=== PATIENT | female | born 1965 | race Caucasian/White ===

== ENCOUNTER 2022-01-24 13:39 | Outpatient (CLI) | payer OTHER, SELFPAY ==
[2022-01-24 11:26] LABS: Albumin* 4.2 g/dL (3.3-5.0); Chloride* 107 mmol/L (96-114)
[2022-01-24 11:27] LABS: Potassium* 4.4 mmol/L (3.6-5.1); Sodium* 141 mmol/L (135-149)
[2022-01-24 11:29] LABS: Aspartate Amino Transferase* 24 U/L (12-35); Bilirubin Total* 0.7 mg/dL (0.1-1.5); Blood Urea Nitrogen* 23 mg/dL (7-30); Carbon Dioxide* 29 mmol/L (20-32); Cholesterol* 238 mg/dL (90-199); Estimated Glomerular Filt Rate 67 ml/min; Glucose* 91 mg/dL (60-115); Total Protein* 6.3 g/dL (6.0-8.3)
[2022-01-24 11:30] LABS: Alanine Aminotransferase* 18 U/L (4-35); Alkaline Phosphatase* 72 U/L (40-150); Calcium* 9.6 mg/dL (8.4-10.6); HDL Cholesterol* 86 mg/dL (>=50); LDL Cholesterol Calculated 137 mg/dL (<100); Triglycerides* 74 mg/dL (40-149)
[2022-01-24 13:13] LABS: Free T4 Free Thyroxine* 0.98 ng/dL (0.70-1.85)
== END 2022-01-24 13:40 | disposition home or self-care (01) ==
PROVIDERS: PCP Family Medicine; Visit Provider Family Medicine
DX: E03.9 Hypothyroidism, unspecified (principal); E78.5 Hyperlipidemia, unspecified; F41.9 Anxiety disorder, unspecified
CPT/HCPCS: 80053; 80061; 84439; 84443

== ENCOUNTER 2022-04-11 08:45 | Outpatient (CLI) | payer OTHER, SELFPAY | END 2022-04-11 08:46 | disposition home or self-care (01) | LOC: NFLDREF 04-14 11:09 | PROVIDERS: PCP Family Medicine; Referring Provider Family Medicine; Visit Provider Family Medicine | DX: E03.9 Hypothyroidism, unspecified (principal) | CPT/HCPCS: 84443 ==

== ENCOUNTER 2022-05-18 08:01 | Day surgery (SDC) | payer OTHER, SELFPAY ==
[2022-05-18 08:21] VITALS: BMI 19.9
[2022-05-18 08:24] VITALS: BP 114/90; PULSE 66; RESP 20; TEMP 36.5; O2SAT 99
[2022-05-18] MEDS: LACTATED RINGERS 1000 ML 1,000 ML 100 ML IV (08:30)
--- NOTE | 2022-05-18 08:33 | SUR.PREOP ---
home covid test, negative
[2022-05-18] MEDS: SODIUM CHLORIDE 0.9 % (FLUSH) 10 ML SYRINGE IVF (08:34)
[2022-05-18] MEDS: CEFAZOLIN 1 GM inj IVP (09:08)
[2022-05-18] MEDS: BUPIVACAINE 0.5% 30 ML INJECTION (09:26)
[2022-05-18] MEDS: LIDOCAINE 1% 5 ml (pf) 5 ML VIAL 15 ML INJECTION (09:26)
[2022-05-18 09:45] VITALS: BP 95/60; PULSE 56; RESP 16; TEMP 36.4; O2SAT 98
--- NOTE | 2022-05-18 09:45 | P.GSOP_ITS ---
Operative Note Date of procedure: 05/18/22 Pre-op diagnosis: Lipoma, left upper arm Post-op diagnosis: Same Type of Procedure: Excision of left upper arm lipoma Indications: Patient is a 57-year-old female who presented to clinic with a symptomatic lipoma. Different treatment options were reviewed including observation versus surgical excision. Risks and benefits of operative intervention were discussed at length with the patient. Risks included but was not limited to: Bleeding, infection, risk of damage to surrounding structures, possible need for addition al procedures, risk of recurrence and postoperative complications such as pneumonia, pulmonary emboli or [place]. All questions and concerns were addressed with the patient agreeing to proceed. Procedure Description: After discussing the risks and benefits of the procedure, the patient signed informed consent.? The operative site was marked and the patient was brought to the operating room and placed on the operating table in supine position.? Care was taken to pad the patient's pressure points.?? The patient was then given sedation by anesthesia.?? The operative site was then prepped and draped in the usual sterile fashion.? A time-out was then performed. Local anesthetic was used to infiltrate the surgical field. A vertical incision was made directly over the subcutaneous mass. Dissection was carried down with cautery to a well encapsulated lipoma. The lipoma was adherent to the underlying muscle fascia. Cautery and sharp dissection was used to circumferentially dissect out the mass, which measured 3 x 2 x 2 cm in size. Once removed the mass was sent to pathology. Hemostasis was assured with electrocautery. The incision measured 2 cm and was closed in layers of interrupted 3 0 Vicryl and running 4-0 Monocryl stitch. Dermabond and sterile dressings were applied. ? The patient was then woken and transported to the recovery area in stable condition. ? The patient tolerated the procedure well. Findings: Lipoma of the left upper arm Anesthesia: MAC Surgeon: Meaghan Becker MD Estimated blood loss (mL): 2 Additional Specimen Information: Left upper arm lipoma Condition: stable Disposition: same day
--- NOTE | 2022-05-18 09:45 | W.ANESCHARGE ---
Anesthesia Charges Start Date/Time Anesthesia Start Date: 05/18/22 Anesthesia Start Time: 09:03 Stop Date/Time Anesthesia Stop Date: 05/18/22 Anesthesia Stop Time: 09:42
[2022-05-18 09:56] VITALS: BP 105/58; PULSE 47; RESP 16; O2SAT 98
[2022-05-18 10:10] VITALS: BP 104/68; PULSE 47; RESP 16; TEMP 36.5; O2SAT 99
[2022-05-18 10:40] VITALS: BP 108/66; PULSE 55; RESP 20; O2SAT 99
--- NOTE | 2022-05-18 10:51 | W.ANESCHARGE ---
Anesthesia Charges Start Date/Time Anesthesia Start Date: 05/18/22 Anesthesia Start Time: 09:03 Stop Date/Time Anesthesia Stop Date: 05/18/22 Anesthesia Stop Time: 09:42
== END 2022-05-18 11:00 | disposition home or self-care (01) ==
PROVIDERS: PCP Family Medicine; Visit Provider Surgery
PROC: (CPT 24071; principal; 2022-05-18 09:15)
DX: D17.22 Benign lipomatous neoplasm of skin and subcutaneous tissue of left arm (principal)
CPT/HCPCS: 24071; 00400; 01710; J0690; J2250; J2704; J3010; J3490; J7120

== ENCOUNTER 2023-05-23 10:04 | Outpatient (CLI) | payer OTHER, SELFPAY ==
--- OUTSIDE RECORDS SUMMARY | 2023-05-23 10:07 | XMS_ITS | Clinical Summary ---
Author Name Unknown Organization [facility] Address [address] [place] [address] Care Team Providers Care Auto Air Conditioning Mechanic Name Role Phone Clinic, [facility] Primary Care Provider Allergies Active Allergy Reactions Criticality Noted Date Comments Ampicillin 07/30/2007 Social History Tobacco Use Types Packs/Day Years Used Date Smoking Tobacco: Never Assessed Adolescent Education Answer Date Record ed Getting School Help Needed Not on file 11/05 Sex and Gender Information Value Date Recorded Sex Assigned at Not on file Gender Identity Not on file Sexual Orientation Not on file Last Filed Vital Signs Vital Sign Reading Time Taken Comments Blood Pressure 118/72 01/18/2021 10:44 PM PAPER TESTING SUPERVISOR Pulse 87 01/18/2021 10:44 PM PAPER TESTING SUPERVISOR Temperature 36.6 ??C (97.9 ??F) 01/18/2021 7:54 PM CS T Respiratory Rate 16 01/18/2021 10:44 PM PAPER TESTING SUPERVISOR Oxygen Saturation 98% 01/18/2021 10:44 PM PAPER TESTING SUPERVISOR Inhaled Oxygen Concentration - - Weight 53.5 kg (118 lb) 01/18/2021 7:54 PM PAPER TESTING SUPERVISOR Height 165.1 cm (5' 5) 01/18/2021 7:54 PM PAPER TESTING SUPERVISOR Body Mass Index 19.64 01/18/2021 7:54 PM PAPER TESTING SUPERVISOR Plan of Treatment Health Maintenance Due Date Last Done Comments ADVANCE CARE PLANNING 1966 ANNUAL REVIEW OF HM ORDERS 1966 CT COLONOGRAPHY 1966 FIT 1966 FLEX SIG 1966 YEARLY PREVENTIVE VISIT 1966 sDNA (Cologuard) 1966 COLONOSCOPY 02/11/1976 COLORECTAL CANCER SCREENING 02/11/1976 HIV SCREENING 1981 HEPATITIS C SCREENING 02/11/1984 HEPATITIS B IMMUNIZATION (1 of 3 - 19+ 3-dose series) 1985 DTAP/TDAP/TD IMMUNIZATION (1 - Tdap) 1991 LIPID 2006 MAMMO SCREENING 05/05/2007 05/04/2005 ZOSTER IMMUNIZATION (1 of 2) 02/11/2016 PAP 10/17/2021 10/17/2018, 10/17/2018 COVID-19 Vaccine (1 - 2022-2 4 season) 2022 INFLUENZA VACCINE (#1) 2022 PHQ-2 (once per calendar year) 2023 GLUCOSE 01/19/2024 01/18/2021 HPV IMMUNIZATION Aged Out No longer e ligible based on patient's age to complete this topic IPV IMMUNIZATION Aged Out No longer e ligible based on patient's age to complete this topic MENINGITIS IMMUNIZATION Aged Out No l onger eligible based on patient's age to complete this topic Pneumococcal Vaccine: Pediatrics (0 to 5 Years) and At-Risk Patients (6 to 64 Years) Aged Out No longer eligible b ased on patient's age to complete this topic RSV MONOCLONAL ANTIBODY Aged Out No l onger eligible based on patient's age to complete this topic Procedures Procedure Name Priority Date/Time Associated Diagnosis Comments BASIC METABOLIC PANEL STAT 01/18/2021 8:05 PM PAPER TESTING SUPERVISOR MAMMOGRAM DIAG W/IMPLANTS, BILAT Routine 05/04/2005 10:41 AM PAPER TESTING SUPERVISOR HCL PAP SMEAR Routine 06/30/1998 1:18 PM CDT Gynecologic Examination from Last 3 Months or Most Recently Relevant to Health Maintenance Results * (ABNORMAL) Basic metabolic panel (01/18/2021 8:05 PM PAPER TESTING SUPERVISOR) Sodium 137 133 - 144 mmol/L 01/18/2021 8:38 PM PAPER TESTING SUPERVISOR [facility] Potassium 3.2(L) 3.4 - 5.3 mmol/L 01/18/2021 8:38 PM PAPER TESTING SUPERVISOR [facility] Chloride 106 94 - 109 mmol/L 01/18/2021 8:38 PM PAPER TESTING SUPERVISOR [facility] Carbon Dioxide (CO2) 23 20 - 32 mmol/L 01/18/2021 8:38 PM PAPER TESTING SUPERVISOR [facility] Anion Gap 8 3 - 14 mmol/L 01/18/2021 8:38 PM [facility] Urea Nitrogen 18 7 - 30 mg/dL 01/18/2021 8:38 PM [facility] Creatinine 1.04 0.52 - 1.04 mg/dL 01/18/2021 8:38 PM [facility] Calcium 9.1 8.5 - 10.1 mg/dL 01/18/2021 8:38 PM [facility] Glucose 156(H) 70 - 99 mg/dL 01/18/2021 8:38 PM [facility] GFR Estimate 61 >60 mL/min/1.7 3m2 01/18/2021 8:38 PM [facility] Comment:As of August 15, 2020, eGFR is calculated by the CKD-EPI creatinine equation, without race adjustment. eGFR can be influenced by muscle mass, exercise, and diet. The reported eGFR is an estimation only and is only applicable if the renal function is stable. Blood STRUCTURE OF RIGHT UPPER LIMB / Unknown Venipuncture / Unknown 01/18/2021 8:05 PM PAPER TESTING SUPERVISOR 01/18/2021 8:11 PM PAPER TESTING SUPERVISOR Tres Calles MD LAB - BLOOD ORDER [facility] Acute Care Lab [address] [facility] Lab (1st floor, no room number) [place] [address], [facility] [phone] * Mammo diag w/implants, bilateral (05/04/2005 10:41 AM PAPER TESTING SUPERVISOR) Anatomical Region Laterality Modality Breast Other 05/04/2005 10:4 1 AM PAPER TESTING SUPERVISOR Impressions 05/04/2005 3:23 PM PAPER TESTING SUPERVISOR DIAGNOSTIC MAMMOGRAM, BILATERAL - CHINYERE VIEWS SYMPTOMATIC/IMPLANTS LEFT BREAST ULTRASOUND BREAST SYMPTOMS: Implants. Tiny palpable lump above the areolar in the left breast. PREVIOUS MAMMOGRAPHY: ??Baseline. BREAST PARENCHYMA: Heterogeneously dense. Bilateral breast implants. At the site of the BB placed over the palpable lump in the left breast on the left craniocaudad view, there is a small oval well circumscribed nodular density. This corresponds with a 5 mm oval solid mass in the 12 o'clock position of the left breast 3 cm from the nipple at the site of the palpable lump. It is well circumscribed and wider than tall. There is some internal blood flow. Findings are suggestive of a benign lesion, possibly a lymph node although a fatty hilum is not confidently confirmed. Recommend short term three month follow up ultrasound to re-evaluate. IMPRESSION: CATEGORY 3 Probably benign finding(s) as described. ??Request short-term follow-up ultrasound in three months. TECHNOLOGIST INITIALS: ??JANET. John Dougherty MD IMG MAMMOGRAPHY [facility] * PAP SMEAR (06/30/1998 1:18 PM CDT) Unlabelled DNR [facility] Biopsy Sent DNR [facility] Source VAG,CERV,E NDOCERV [facility] LMP POST [facility] PARA 3 [facility] 2 [facility] Clinical History DNR [facility] Therapy DNR [facility] Last Pap Diagnosis WITHIN NORMAL LIMITS [facility] PAP Date [id number] [facility] Specimen # DNR [facility] Tissue DNR [facility] Tissue Date DNR [facility] Statement of Adequacy [facility] Comment: SATISFACTORY FOR INTERPRETATION POST MENOPAUSAL PATIENT. ??NO ENDOCERVICAL CELLS SEEN. General Categorization DNR [facility] Descriptive Diagnosis [facility] Comment: WITHIN NORMAL LIMITS ATROPHIC CELL PATTERN Recommendations DNR [facility] DNR 114,,,,,, [facility] DNR DNR [facility] DNR DNR [facility] DNR DNR [facility] . [facility] Comment: ?PAP SMEARS ARE SUBJECT TO BOTH FALSE NEGATIVE AND FALSE ? POSITIVE RESULTS EVIDENCED BY DATA PUBLISHED IN THE ? MEDICAL LITERATURE. ??YOUR PATIENT'S RESULT SHOULD BE ? INTERPRETED IN THIS CONTEXT, TOGETHER WITH THE PATIENT'S ? HISTORY AND CLINICAL FINDINGS. TESTING LOCATION ? THIS [facility] PERFOR[facility] AT [facility] ? [address] [facility]. [id number] ? PHONE NUMBERS FOR CYTOLOGY INQUIRES, INCLUDING SLIDE REQUESTS ? EXT. 1333 ?? EXT. [id number] 06/28/1998 Patricia Acuna MD LABORATORY [facility] from Last 3 Months or Most Recently Relevant to Health Maintenance Care Teams Auto Air Conditioning Mechanic Relationship Specialty Start Date End Date Clinic, [facility] [address] [place] [address] PCP - General 01/18/21
--- OUTSIDE RECORDS SUMMARY | 2023-05-23 10:07 | XMS_ITS | Clinical Summary ---
Author Name Unknown Organization [employer] [facility] [employer] Address [place], [place] [address] Care Team Providers Care Assistant Professor Of Business Name Role Phone Pcp, No Primary Care Provider Unavailabl e Allergies Active Allergy Reactions Criticality Noted Date Comments Ampicillin 07/30/2007 Medications Medication Sig Dispensed Refills Start Date End Date Status multivitamin (MVI) tablet Take 1 tablet by mouth once daily. 0 04/29/2009 Active omega-3 fatty acids-vitamin E (FISH OIL) 1,000 mg Cap Take by mouth. 0 04/29/2009 Act francois Active Problems Problem Noted Date Diagnosed Date Surveillance of previously p rescribed intrauterine contraceptive device 06/30/2010 Family History Medical History Relation Name Comments Alcohol/Drug Father Arthritis Maternal Grandmother Heart Disease Maternal Grandmother Hypertension Maternal Grandmother Psychiatric illness Maternal Grandmother depression Allergies Mother Cancer Mother lymphoma Heart Disease Mother Hyperlipidemia Mother Hypertension Mother Relation Name Status Comments Daughter Alive Father (Age 70s) Maternal Grandfather Maternal Grandmother Mother (Age 66) Paternal Grandfather Paternal Grandmother Sister Alive Son Alive Social History Tobacco Use Types Packs/Day Years Used Date Smoking Tobacco: Never Smokeless Tobacco: Never Alcohol Use Standard Drinks/Week Comments Yes 0 (1 standard drink = 0.6 oz pur e alcohol) social Sex and Gender Information Value Date Recorded Sex Assigned at Not on file Gender Identity Not on file Sexual Orientation Not on file Obstetrics History Last Filed Vital Signs Vital Sign Reading Time Taken Comments Blood Pressure 114/68 06/25/2013 7:12 AM CDT Pulse 70 06/25/2013 7:12 AM CDT Temperature 36.4 ??C (97.5 ??F) 06/25/2013 7:12 AM CD T Respiratory Rate 20 06/30/2010 1:37 PM CDT Oxygen Saturation 100% 06/25/2013 7:12 AM CDT Inhaled Oxygen Concentration - - Weight 52.8 kg (116 lb 6.4 oz) 06/25/2013 7:12 A M CDT Height 165.1 cm (5' 5) 06/30/2010 1:37 PM CDT Body Mass Index 19.37 06/30/2010 1:37 PM CDT Plan of Treatment Health Maintenance Due Date Last Done Comments Tdap 1977 Depression screening for age 12+ 1978 HIV for age 15-65 1981 BMI (ht and wt on same day) for age 18+ 02/11/1984 Hepatitis C screening for age 18-79 02/11/1984 Tetanus booster 1986 Colonoscopy through age 75 2011 Lipids for age 45-75 2011 Mammogram for age 45-75 07/01/2011 06/30/2010 Zoster (shingles) series for age 50+ (1 of 2) 02/11/2016 COVID-19 vaccine series (2022-24 season) 2022 Influenza for age 50-64 10/07/2023 Pap test for age 21-65 04/14/2025 , 04/14/2022, 02/23/2021, Additional history exists Pneumococcal series for age 6-64 Aged Out No longer eligible based on patient's age to complete this topic Procedures Procedure Name Priority Date/Time Associated Diagnosis Comments HPV THIN PREP Routine 04/14/2022 12:20 PM MANAGER ELECTRICAL from Last 3 Months or Most Recently Relevant to Health Maintenance Results * (ABNORMAL) HPV HIGH RISK (04/14/2022 12:20 PM MANAGER ELECTRICAL) TYPE 16 Negative Negative 04/21/2022 4:45 PM CDT [facility] TYPE 18 Negative Negative 04/21/2022 4:45 PM CDT [facility] OTHER HIGH RISK TYPES Positive(A) Negative 04/21/2022 4:45 PM CDT [facility] Other (Cervical) 04/14/2022 12:20 PM MANAGER ELECTRICAL 04/17/2022 5:58 PM CDT Narrative [facility] - 04/21/2022 4:45 PM CDT Specimen is positive for the DNA of any one of, or combination of, the following high risk HPV types: 31, 33, 35, 39, 45, 51, 52, 56, 58, 59, 66, 68. HPV types 16 and 18 DNA were undetectable or below the pre-set threshold. ? Methodology: Lilia Emiliano 4800 HPV Test Estela Mesa MD [facility] [address] [place] [address], from Last 3 Months or Most Recently Relevant to Health Maintenance Care Teams Assistant Professor Of Business Relationship Specialty Start Date End Date Pcp, No . PCP - General 06/24/13
--- OUTSIDE RECORDS SUMMARY | 2023-05-23 10:07 | XMS_ITS | Referral Summary ---
Author Name Unknown Organization [facility] Address [address] [place] [address] Care Team Providers Care Kitchen Hand Name Role Phone Clinic, [facility] Primary Care Provider Allergies Active Allergy Reactions [...] Comments Blood Pressure 118/72 01/18/2021 10:44 PM PARTS COUNTERMAN Pulse 87 01/18/2021 10:44 PM PARTS COUNTERMAN Temperature 36.6 ??C (97.9 ??F) 01/18/2021 7:54 PM CS T Respiratory Rate 16 01/18/2021 10:44 PM PARTS COUNTERMAN Oxygen Saturation 98% 01/18/2021 10:44 PM PARTS COUNTERMAN Inhaled Oxygen Concentration - - Weight 53.5 kg (118 lb) 01/18/2021 7:54 PM PARTS COUNTERMAN Height 165.1 cm (5' 5) 01/18/2021 7:54 PM PARTS COUNTERMAN Body Mass Index 19.64 01/18/2021 7:54 PM PARTS COUNTERMAN Plan of Treatment Not on file Procedures Procedure Name Priority Date/Time Associated Diagnosis Comments BASIC METABOLIC PANEL STAT 01/18/2021 8:05 PM PARTS COUNTERMAN MAMMOGRAM DIAG W/IMPLANTS, BILAT Routine 05/04/2005 10:41 AM PARTS COUNTERMAN HCL PAP SMEAR Routine 06/30/1998 1:18 PM CDT Gynecologic Examination from Last 3 Months or Most Recently Relevant to Health Maintenance Results * (ABNORMAL) Basic metabolic panel (01/18/2021 8:05 PM PARTS COUNTERMAN) Sodium 137 133 - 144 mmol/L 01/18/2021 8:38 PM [facility] Potassium 3.2(L) 3.4 - 5.3 mmol/L 01/18/2021 8:38 PM PARTS COUNTERMAN [facility] Chloride 106 94 - 109 mmol/L 01/18/2021 8:38 PM [facility] Carbon Dioxide (CO2) 23 20 - 32 mmol/L 01/18/2021 8:38 PM [facility] Anion Gap 8 3 - 14 mmol/L 01/18/2021 8:38 PM [facility] Urea Nitrogen 18 7 - 30 mg/dL 01/18/2021 8:38 PM [facility] Creatinine 1.04 0.52 - 1.04 mg/dL 01/18/2021 8:38 PM [facility] Calcium 9.1 8.5 - 10.1 mg/dL 01/18/2021 8:38 PM [facility] Glucose 156(H) 70 - 99 mg/dL 01/18/2021 8:38 PM PARTS COUNTERMAN [facility] GFR Estimate 61 >60 mL/min/1.7 3m2 01/18/2021 8:38 PM [facility] Comment:As of August 15, 2020, eGFR is calculated by the CKD-EPI creatinine equation, without race adjustment. eGFR can be influenced by muscle mass, exercise, and diet. The reported eGFR is an estimation only and is only applicable if the renal function is stable. Blood STRUCTURE OF RIGHT UPPER LIMB / Unknown Venipuncture / Unknown 01/18/2021 8:05 PM PARTS COUNTERMAN 01/18/2021 8:11 PM PARTS COUNTERMAN Tres Calles MD LAB - BLOOD ORDER [facility] Acute Care Lab [address] [facility] Lab (1st floor, no room number) [place] [address], [facility] [phone] * Mammo diag w/implants, bilateral (05/04/2005 10:41 AM PARTS COUNTERMAN) Anatomical Region Laterality Modality Breast Other 05/04/2005 10:4 1 AM PARTS COUNTERMAN Impressions 05/04/2005 3:23 PM PARTS COUNTERMAN DIAGNOSTIC MAMMOGRAM, BILATERAL - CHINYERE VIEWS SYMPTOMATIC/IMPLANTS [...] INITIALS: ??JANET. John Dougherty MD IMG MAMMOGRAPHY [facility] * PAP SMEAR (06/30/1998 1:18 PM CDT) Unlabelled DNR [facility] Biopsy Sent DNR [facility] Source VAG,CERV,E NDOCERV [facility] LMP POST [facility] PARA 3 [facility] 2 [facility] Clinical History DNR [facility] Therapy DNR [facility] Last Pap Diagnosis WITHIN NORMAL LIMITS [facility] PAP Date [id number] [facility] Specimen # DNR [facility] Tissue DNR [facility] Tissue Date DNR [facility] Statement of Adequacy [facility] Comment: SATISFACTORY FOR INTERPRETATION POST MENOPAUSAL PATIENT. ??NO ENDOCERVICAL CELLS SEEN. General Categorization [facility] Descriptive Diagnosis [facility] Comment: WITHIN NORMAL LIMITS ATROPHIC CELL PATTERN Recommendations DNR [facility] DNR 114,,,,,, [facility] DNR DNR [facility] DNR DNR [facility] DNR DNR [facility] . [facility] Comment: ?PAP SMEARS ARE SUBJECT TO BOTH FALSE NEGATIVE AND FALSE ? POSITIVE RESULTS EVIDENCED BY DATA PUBLISHED IN THE ? MEDICAL LITERATURE. ??YOUR PATIENT'S RESULT SHOULD BE ? INTERPRETED IN THIS CONTEXT, TOGETHER WITH THE PATIENT'S ? HISTORY AND CLINICAL FINDINGS. TESTING LOCATION ? THIS TEST WAS PERFORMED AT [facility] [address] [facility]. [address] ? PHONE NUMBERS FOR CYTOLOGY INQUIRES, INCLUDING SLIDE REQUESTS ? EXT. [id number] ?? EXT. [id number] 06/28/1998 Patricia Acuna MD LABORATORY [facility] from Last 3 Months or Most Recently Relevant to Health Maintenance Care Teams Kitchen Hand Relationship Specialty Start Date End Date Clinic, [facility] [address] [place] [address] PCP - General 01/18/21
== END 2023-05-23 10:05 | disposition home or self-care (01) ==
PROVIDERS: PCP Family Medicine; Visit Provider Obstetrics & Gynecology
DX: E03.9 Hypothyroidism, unspecified (principal); E78.5 Hyperlipidemia, unspecified; Z13.1 Encounter for screening for diabetes mellitus
CPT/HCPCS: 80061; 82947; 84443

== ENCOUNTER 2023-09-24 12:46 | Outpatient (CLI) | payer OTHER, SELFPAY ==
--- OUTSIDE RECORDS SUMMARY | 2023-09-24 12:48 | XMS_ITS | Clinical Summary ---
Author Organization [facility] Address [address] [place] [address] Care Team Providers Care Power Wheelchair Mechanic Name Role Phone Clinic, [facility] Primary Care Provider Allergies Active Allergy Reactions [...] Comments Blood Pressure 118/72 01/18/2021 10:44 PM MUSIC PUBLICIST Pulse 87 01/18/2021 10:44 PM MUSIC PUBLICIST Temperature 36.6 ??C (97.9 ??F) 01/18/2021 7:54 PM CS T Respiratory Rate 16 01/18/2021 10:44 PM MUSIC PUBLICIST Oxygen Saturation 98% 01/18/2021 10:44 PM MUSIC PUBLICIST Inhaled Oxygen Concentration - - Weight 53.5 kg (118 lb) 01/18/2021 7:54 PM MUSIC PUBLICIST Height 165.1 cm (5' 5) 01/18/2021 7:54 PM MUSIC PUBLICIST Body Mass Index 19.64 01/18/2021 7:54 PM MUSIC PUBLICIST Plan of Treatment Health Maintenance Due Date [...] Vaccine (1 - 2022-2 4 season) 2022 PHQ-2 (once per calendar year) 2023 INFLUENZA VACCINE (#1) 2023 GLUCOSE 01/19/2024 01/18/2021 HPV IMMUNIZATION Aged [...] BASIC METABOLIC PANEL STAT 01/18/2021 8:05 PM MUSIC PUBLICIST MAMMOGRAM DIAG W/IMPLANTS, BILAT Routine 05/04/2005 10:41 AM MUSIC PUBLICIST from Last 3 Months or Most Recently Relevant to Health Maintenance Results * (ABNORMAL) Basic metabolic panel (01/18/2021 8:05 PM MUSIC PUBLICIST) Sodium 137 133 - 144 mmol/L 01/18/2021 8:38 PM MUSIC PUBLICIST [facility] Potassium 3.2(L) 3.4 - 5.3 mmol/L 01/18/2021 8:38 PM MUSIC PUBLICIST [facility] Chloride 106 94 - 109 mmol/L 01/18/2021 8:38 PM MUSIC PUBLICIST [facility] Carbon Dioxide (CO2) 23 20 - 32 mmol/L 01/18/2021 8:38 PM MUSIC PUBLICIST [facility] Anion Gap 8 3 - 14 mmol/L 01/18/2021 8:38 PM MUSIC PUBLICIST [facility] Urea Nitrogen 18 7 - 30 mg/dL 01/18/2021 8:38 PM MUSIC PUBLICIST LABOR[facility]ORY Creatinine 1.04 0.52 - 1.04 mg/dL 01/18/2021 8:38 PM MUSIC PUBLICIST LABORATORY Calcium 9.1 8.5 - 10.1 mg/dL 01/18/2021 8:38 PM [facility] Glucose 156(H) 70 - 99 mg/dL 01/18/2021 8:38 PM MUSIC PUBLICIST LABORATORY GFR Estimate 61 >60 mL/min/1.7 3m2 01/18/2021 8:38 PM [facility] Comment:As of August 15, 2020, eGFR is calculated by the CKD-EPI creatinine equation, without race adjustment. eGFR can be influenced by muscle mass, exercise, and diet. The reported eGFR is an estimation only and is only applicable if the renal function is stable. Blood STRUCTURE OF RIGHT UPPER LIMB / Unknown Venipuncture / Unknown 01/18/2021 8:05 PM MUSIC PUBLICIST 01/18/2021 8:11 PM MUSIC PUBLICIST Tres Calles MD LAB - BLOOD ORDER YAN LAB[facility] Acute Care Lab [address] [facility] Lab (1st floor, no room number) [place] [address], [facility] [phone] * Mammo diag w/implants, bilateral (05/04/2005 10:41 AM MUSIC PUBLICIST) Anatomical Region Laterality Modality Breast Other 05/04/2005 10:4 1 AM MUSIC PUBLICIST Impressions 05/04/2005 3:23 PM MUSIC PUBLICIST DIAGNOSTIC MAMMOGRAM, BILATERAL - CHINYERE VIEWS SYMPTOMATIC/IMPLANTS [...] John Dougherty MD IMG MAMMOGRAPHY [facility] from Last 3 Months or Most Recently Relevant to Health Maintenance Care Teams Power Wheelchair Mechanic Relationship Specialty Start Date End Date Clinic, [facility] [address] [place] [address] PCP - General 01/18/21
--- OUTSIDE RECORDS SUMMARY | 2023-09-24 12:48 | XMS_ITS | Referral Summary ---
Author Organization [facility] Address [address] [place] [address] Care Team Providers Care Director Of Global Marketing Name Role Phone Clinic, [facility] Primary Care Provider Allergies Active Allergy [...] Comments Blood Pressure 118/72 01/18/2021 10:44 PM SHEET TAILER Pulse 87 01/18/2021 10:44 PM SHEET TAILER Temperature 36.6 ??C (97.9 ??F) 01/18/2021 7:54 PM CS T Respiratory Rate 16 01/18/2021 10:44 PM SHEET TAILER Oxygen Saturation 98% 01/18/2021 10:44 PM SHEET TAILER Inhaled Oxygen Concentration - - Weight 53.5 kg (118 lb) 01/18/2021 7:54 PM SHEET TAILER Height 165.1 cm (5' 5) 01/18/2021 7:54 PM SHEET TAILER Body Mass Index 19.64 01/18/2021 7:54 PM SHEET TAILER Plan of Treatment Not on file Procedures Procedure Name Priority Date/Time Associated Diagnosis Comments BASIC METABOLIC PANEL STAT 01/18/2021 8:05 PM SHEET TAILER MAMMOGRAM DIAG W/IMPLANTS, BILAT Routine 05/04/2005 10:41 AM SHEET TAILER from Last 3 Months or Most Recently Relevant to Health Maintenance Results * (ABNORMAL) Basic metabolic panel (01/18/2021 8:05 PM SHEET TAILER) Sodium 137 133 - 144 mmol/L 01/18/2021 8:38 PM [facility] Potassium 3.2(L) 3.4 - 5.3 mmol/L 01/18/2021 8:38 PM [facility] Chloride 106 94 - 109 mmol/L 01/18/2021 8:38 PM [facility] Carbon Dioxide (CO2) 23 20 - 32 mmol/L 01/18/2021 8:38 PM [facility] Anion Gap 8 3 - 14 mmol/L 01/18/2021 8:38 PM [facility] Urea Nitrogen 18 7 - 30 mg/dL 01/18/2021 8:38 PM [facility] Creatinine 1.04 0.52 - 1.04 mg/dL 01/18/2021 8:38 PM [facility] Calcium 9.1 8.5 - 10.1 mg/dL 01/18/2021 8:38 PM [facility] Glucose 156(H) 70 - 99 mg/dL 01/18/2021 8:38 PM [facility] GFR Estimate 61 >60 mL/min/1.7 3m2 01/18/2021 8:38 PM [facility] Comment:As of August 15, 2020, eGFR is calculated by the CKD-EPI creatinine equation, without race adjustment. eGFR can be influenced by muscle mass, exercise, and diet. The reported eGFR is an estimation only and is only applicable if the renal function is stable. Blood STRUCTURE OF RIGHT UPPER LIMB / Unknown Venipuncture / Unknown 01/18/2021 8:05 PM SHEET TAILER 01/18/2021 8:11 PM SHEET TAILER Tres Calles MD LAB - BLOOD ORDER [facility] Acute Care Lab [address] [facility] (1st floor, no room number) [place] [address], [facility] [phone] * Mammo diag w/implants, bilateral (05/04/2005 10:41 AM SHEET TAILER) Anatomical Region Laterality Modality Breast Other 05/04/2005 10:4 1 AM SHEET TAILER Impressions 05/04/2005 3:23 PM SHEET TAILER DIAGNOSTIC MAMMOGRAM, BILATERAL - CHINYERE VIEWS SYMPTOMATIC/IMPLANTS [...] Recently Relevant to Health Maintenance Care Teams Director Of Global Marketing Relationship Specialty Start Date End Date [facility], [facility] [address] [place] [address] PCP - General 01/18/21
--- OUTSIDE RECORDS SUMMARY | 2023-09-24 12:48 | XMS_ITS | Clinical Summary ---
Author Organization [facility] [facility] Address [place], [place] [address] Care Team Providers Care Social Sciences Lecturer Name Role Phone Pcp, No Primary Care [...] previously p rescribed intrauterine contraceptive device 06/30/2010 Encounters Date Type Department Care Team Description 07/23/2023 Lab Requisition [facility] C[facility]TRAL LAB [phone] Marichuy Baker MD from Last 3 Months Family History Medical History Relation Name Comments [...] 50-64 10/07/2023 Pap test for age 21-65 05/22/2026 , 05/23/2023, 04/14/2022, Additional history exists Pneumococcal series for age 6-64 Aged Out No longer eligible based on patient's age to complete this topic Procedures Procedure Name Priority Date/Time Associated Diagnosis Comments LAB TRACKING EVENT Routine 07/20/2023 11 :20 AM CDT PATH TISSUE EXAM Routine 07/20/2023 11:2 0 AM CDT HPV THIN PREP Routine 05/23/2023 9:45 AM CDT from Last 3 Months or Most Recently Relevant to Health Maintenance Results * LAB TRACKING EVENT (07/20/2023 11:20 AM CDT) Other (Other) Client Collect / Unknown 07/20/2023 11:20 AM CDT 07/23/2023 4:11 PM CDT Marichuy Baker MD LAB BILL ONLY [facility] [employer] [facility]CEN[facility]AL LABORATORY [address] [place] [address], * PATH TISSUE EXAM (07/20/2023 11:20 AM CDT) Case Report Pathology Report ?Case: [id number] ? Authorizing Provider: ??Marichuy Baker MD ?? Collected: ? 07/20/2023 1120 ? Ordering Location: ? [facility] ?Received: ?07/23/2023 1654 ? Pathologist: ? Laura Ansari MD ? Specimens: ?? A) - Cervical Biopsy, 9 O'Clock Cervical Biopsy ? B) - Cervical Biopsy, 3 O'Clock Cervical Biopsy ? 07/24/2023 5:24 PM CDT [facility] Final Diagnosis A) CERVIX, 9:00, BIOPSY: 1. Low grade squamous intraepithelial lesion (SANA 1) ?? a. Sampling: Ectocervix and endocervix ?? b. Transformation zone: Partially visualized 2. Negative for glandular neoplasia, high grade squamous intraepithelial lesion, and invasive carcinoma B) CERVIX, 3:00, BIOPSY: 1. Low grade squamous intraepithelial lesion (SANA 1) ?? a. Sampling: Ectocervix ?? b. Transformation zone: Not visualized 2. Negative for high grade squamous intraepithelial lesion and invasive carcinoma 07/24/2023 5:24 PM CDT [facility] [employer] [facility] ENTRAL [facility]ORAT[facility] Comment The patient's prior Pap test ([id number]; 05/23/23) was diagnosed as atypical squamous cells of undetermined significance (ASCUS). Concurrent HR-HPV testing was positive for HR-HPV other (non-16/18) subtype(s). The atypical cells seen on the prior cervical Pap test are explained by the current biopsies. 07/24/2023 5:24 PM CDT [facility] [employer] [facility] Clinical Information ASCUS pap, HR-HPV positive. Colposcopy demonstrated acetowhite epithelium and a ring along the transformation zone. 07/24/2023 5:24 PM CDT [facility] [employer] [facility] ENTRAL LABORATORY Gross Description A) Received in formalin, labeled with the patient's name and 9:00 cervical BX, is a single ruiz mucosal fragment measuring 0.5 cm. The specimen is submitted in toto in one cassette. B) Received in formalin, labeled with the patient's name and 3:00 cervical BX, is a single ruiz mucosal fragment measuring 0.3 cm. The specimen is submitted in toto in one cassette. [facility] 07/23/2023 07/24/2023 5:24 PM CDT [facility] [employer] [facility] Microscopic Description The final diagnosis is based on microscopic examination of appropriate sections of all specimens. Deeper sections are examined. Case builder 07/24/2023 5:24 PM CDT [facility] [employer] [facility]-C ENTRAL LABORATORY Additional Information Interpreted at [facility], Central Laboratory - [address], [place] [address] 07/24/2023 5:24 PM CDT [facility] [employer] [facility] ENTRAL [facility] Other (Cervical Biopsy) 07/20/2023 11:20 AM CDT 07/23/2023 4:54 PM CDT Specimen (specimen) (Cervical Biopsy) 07/20/2023 11:20 AM CDT 07/23/2023 4:54 PM CDT Marichuy Baker MD PATHOLOGY/CYTOLOG Y Performing Organization Address [facility] Co de Phone Number [facility] [address] [address], [place] * (ABNORMAL) HPV HIGH RISK (05/23/2023 9:45 AM CDT) TYPE 16 Negative Negative 05/25/2023 11:37 AM CDT [facility] TRAL LABORATORY TYPE 18 Negative Negative 05/25/2023 11:37 AM CDT [facility] TRAL [facility] OTHER HIGH RISK TYPES Positive(A) Negative 05/25/2023 11:37 AM CDT [facility] TRAL [facility] Other (Cervical) 05/23/2023 9:45 AM CDT 05/24/2023 10:27 AM CDT Narrative [facility] - 05/25/2023 11:37 AM CDT Specimen is positive for the DNA of any one of, or combination of, the following high risk HPV types: 31, 33, 35, 39, 45, 51, 52, 56, 58, 59, 66, 68. HPV types 16 and 18 DNA were undetectable or below the pre-set threshold. ? Methodology: Lilia Emiliano 4800 HPV Test Estela Mesa MD MICROBIOLOGY Performing Organization Address City/[facility] Co de Phone Number [facility] [address] [address], from Last 3 Months or Most Recently Relevant to Health Maintenance Care Teams Social Sciences Lecturer Relationship Specialty Start Date End Date Pcp, No . PCP - General 06/24/13
--- NOTE | 2023-09-24 13:00 | CRLHL7_ITS ---
For Patients: As a result of the Century Cures Act, medical imaging exams and procedure reports are released immediately into your electronic medical record. You may view this report before your referring provider. If you have questions, please contact your health care provider. BILATERAL DIGITAL SCREENING MAMMOGRAM WITH COMPUTER-AIDED DETECTION AND TOMOSYNTHESIS CLINICAL HISTORY: Routine screening exam. COMPARISON: 06/13/2022, 11/17/2020, 10/29/2018. TECHNIQUE: Digital mammogram in CC and MLO projections including computer-aided detection (CAD). Tomosynthesis was used in this interpretation. BREAST COMPOSITION: There are scattered areas of fibroglandular density. FINDINGS: RIGHT Breast: Focal nodular density within the lower inner quadrant 2 cm from the nipple. Implant intact. LEFT Breast: No suspicious findings. Implant intact. IMPRESSION: RIGHT breast asymmetry/mass. RECOMMENDATIONS: Additional mammographic views of the RIGHT breast including 3D spot compression CC/MLO. RIGHT breast ultrasound may also be required. BI-RADS Category 0: Incomplete: Need Additional Imaging Evaluation and/or Prior Mammograms for Comparison The [facility] will contact the patient for follow-up. A lay language report of this examination will be provided to the patient. Dictated by Lew Izquierdo MD @ 09/25/2023 8:31:34 AM jj/Dictated by: Lew Izquierdo MD @ 09/25/2023 8:31:00 AM (Electronically Signed)
== END 2023-09-24 12:47 | disposition home or self-care (01) ==
LOC: MAMMO 12:47
PROVIDERS: PCP Family Medicine; Visit Provider Family Medicine
DX: Z12.31 Encounter for screening mammogram for malignant neoplasm of breast (principal); N63.10 Unspecified lump in the right breast, unspecified quadrant
CPT/HCPCS: 77063; 77067

== ENCOUNTER 2023-10-05 10:46 | Outpatient (CLI) | payer OTHER, SELFPAY ==
--- NOTE | 2023-10-05 10:45 | CRLHL7_ITS ---
For Patients: As a result of the Cures Act, medical imaging exams and procedure reports are released immediately into your electronic medical record. You may view this report before your referring provider. If you have questions, please contact your health care provider. RIGHT DIAGNOSTIC MAMMOGRAM WITH COMPUTER-AIDED DETECTION AND TOMOSYNTHESIS CLINICAL HISTORY: RIGHT breast mass/asymmetry. COMPARISON: 09/24/2023, 06/13/2022, 11/17/2020. TECHNIQUE: Digital RIGHT mammogram in two projections. Computer-aided detection and tomosynthesis was used in this interpretation. Real-time ultrasound imaging of RIGHT breast with imaging documentation. BREAST COMPOSITION: There are scattered areas of fibroglandular density. FINDINGS: Additional spot compression mammogram images RIGHT breast submitted. Decreased conspicuity of previously noted asymmetric density. No architectural distortion. No suspicious calcifications. Targeted RIGHT breast ultrasound performed at 3 o`clock 1 cm from the nipple. Subcutaneous lymph node is present measuring 5 x 2 x 6 mm. Intact underlying implant. IMPRESSION: Benign intramammary lymph node RIGHT breast 3 o`clock 1 cm from the nipple measuring 6 mm. No suspicious findings. RECOMMENDATIONS: Annual bilateral screening mammography. BI-RADS Category 2: Benign Results and recommendations discussed with the patient. Dictated by Lew Izquierdo MD @ 10/05/2023 2:20:29 PM /sp/salud SP/Dictated by: Lew Izquierdo MD @ 10/05/2023 2:20:00 PM (Electronically Signed)
--- OUTSIDE RECORDS SUMMARY | 2023-10-05 10:47 | XMS_ITS | Clinical Summary ---
Author Organization [employer] [facility] Address [place], [place] [address] Care Team Providers Care Java Lead Architect Name Role Phone Pcp, No Primary Care [...] Department Care Team Description 07/23/2023 Lab Requisition [facility] CENTRAL LAB [phone] Marichuy Baker MD from Last 3 Months [...] CDT Marichuy Baker MD LAB BILL ONLY [facility] [employer] [facility]-CENTRAL LABORATORY [address] [place] [address], * PATH TISSUE EXAM (07/20/2023 11:20 AM CDT) Case Report Pathology Report ?Case: [id number] ? Authorizing Provider: ??Marichuy Baker MD ?? Collected: ? 07/20/2023 1120 ? Ordering Location: ? [facility] ?Received: ?07/23/2023 1654 ? Pathologist: ? Laura Ansari MD ? Specimens: ?? A) - Cervical Biopsy, 9 O'Clock Cervical Biopsy ? B) - Cervical Biopsy, 3 O'Clock Cervical Biopsy ? 07/24/2023 5:24 PM [facility]T [facility] Final Diagnosis A) CERVIX, [...] and invasive carcinoma 07/24/2023 5:24 PM CDT [facility] [employer] [facility] ENTRAL LABORATORY Comment The patient's prior Pap test ([id number]; 05/23/23) was diagnosed as atypical squamous cells of undetermined significance (ASCUS). Concurrent HR-HPV testing was positive for HR-HPV other (non-16/18) subtype(s). The atypical cells seen on the prior cervical Pap test are explained by the current biopsies. 07/24/2023 5:24 PM CDT [facility] [employer] [facility] Clinical Information ASCUS pap, HR-HPV positive. Colposcopy demonstrated acetowhite epithelium and a ring along the transformation zone. 07/24/2023 5:24 PM CDT [facility] [employer] [facility] ENTRAL LABORATORY Gross Description A) Received in [...] is submitted in toto in one cassette. [facility] 07/23/2023 07/24/2023 5:24 PM CDT [facility] [facility] Microscopic Description The final diagnosis is based on microscopic examination of appropriate sections of all specimens. Deeper sections are examined. Case builder 07/24/2023 5:24 PM CDT [facility] [employer] [facility] ENTRAL LABORATORY Additional Information Interpreted at [facility] [employer] [facility], Central Laboratory - [address] [address] 07/24/2023 5:24 PM CDT [facility] [employer] [facility] EN[facility] Other (Cervical Biopsy) 07/20/2023 11:20 AM CDT 07/23/2023 4:54 PM CDT Specimen (specimen) (Cervical Biopsy) 07/20/2023 11:20 AM CDT 07/23/2023 4:54 PM CDT Marichuy Baker MD PATHOLOGY/CYTOLOG Y Performing Organization Address [facility] Co de Phone Number [facility] [address] [address], [place] * (ABNORMAL) HPV HIGH RISK (05/23/2023 9:45 AM CDT) TYPE 16 Negative Negative 05/25/2023 11:37 AM CDT [facility] TR[facility] LABORATORY TYPE 18 Negative Negative 05/25/2023 11:37 AM CDT [facility] TR[facility] OTHER HIGH RISK TYPES Positive(A) Negative 05/25/2023 11:37 AM CDT [facility] TR[facility] Other (Cervical) 05/23/2023 9:45 AM CDT 05/24/2023 10:27 AM CDT Narrative [facility] - 05/25/2023 11:37 AM CDT Specimen [...] Estela Mesa MD MICROBIOLOGY Performing Organization Address City/[facility] Co de Phone Number [facility] [address] [address], from Last 3 Months or Most Recently Relevant to Health Maintenance Care Teams Java Lead Architect Relationship Specialty Start Date End Date Pcp, No . PCP - General 06/24/13
--- OUTSIDE RECORDS SUMMARY | 2023-10-05 10:47 | XMS_ITS | Clinical Summary ---
Author Organization [facility] Address [address] [place] [address] Care Team Providers Care Safety Administrator Name Role Phone Clinic, [facility] Primary Care Provider Allergies Active Allergy [...] Comments Blood Pressure 118/72 01/18/2021 10:44 PM CLINICAL RESOURCE COORDINATOR Pulse 87 01/18/2021 10:44 PM CLINICAL RESOURCE COORDINATOR Temperature 36.6 ??C (97.9 ??F) 01/18/2021 7:54 PM CS T Respiratory Rate 16 01/18/2021 10:44 PM CLINICAL RESOURCE COORDINATOR Oxygen Saturation 98% 01/18/2021 10:44 PM CLINICAL RESOURCE COORDINATOR Inhaled Oxygen Concentration - - Weight 53.5 kg (118 lb) 01/18/2021 7:54 PM CLINICAL RESOURCE COORDINATOR Height 165.1 cm (5' 5) 01/18/2021 7:54 PM CLINICAL RESOURCE COORDINATOR Body Mass Index 19.64 01/18/2021 7:54 PM CLINICAL RESOURCE COORDINATOR Plan of Treatment Health Maintenance Due Date [...] BASIC METABOLIC PANEL STAT 01/18/2021 8:05 PM CLINICAL RESOURCE COORDINATOR MAMMOGRAM DIAG W/IMPLANTS, BILAT Routine 05/04/2005 10:41 AM CLINICAL RESOURCE COORDINATOR from Last 3 Months or Most Recently Relevant to Health Maintenance Results * (ABNORMAL) Basic metabolic panel (01/18/2021 8:05 PM CLINICAL RESOURCE COORDINATOR) Sodium 137 133 - 144 mmol/L 01/18/2021 8:38 PM CLINICAL RESOURCE COORDINATOR [facility] Potassium 3.2(L) 3.4 - 5.3 mmol/L 01/18/2021 8:38 PM CLINICAL RESOURCE COORDINATOR [facility] Chloride 106 94 - 109 mmol/L 01/18/2021 8:38 PM CLINICAL RESOURCE COORDINATOR [facility] Carbon Dioxide (CO2) 23 20 - 32 mmol/L 01/18/2021 8:38 PM CLINICAL RESOURCE COORDINATOR [facility] Anion Gap 8 3 - 14 mmol/L 01/18/2021 8:38 PM CLINICAL RESOURCE COORDINATOR [facility] Urea Nitrogen 18 7 - 30 mg/dL 01/18/2021 8:38 PM CLINICAL RESOURCE COORDINATOR [facility] Creatinine 1.04 0.52 - 1.04 mg/dL 01/18/2021 8:38 PM CLINICAL RESOURCE COORDINATOR LABORATORY Calcium 9.1 8.5 - 10.1 mg/dL 01/18/2021 8:38 PM CLINICAL RESOURCE COORDINATOR LABORATORY Glucose 156(H) 70 - 99 mg/dL 01/18/2021 8:38 PM CLINICAL RESOURCE COORDINATOR LABORATORY GFR Estimate 61 >60 mL/min/1.7 3m2 01/18/2021 8:38 PM CLINICAL RESOURCE COORDINATOR LABORATORY Comment:As of August 15, 2020, eGFR is calculated by the CKD-EPI creatinine equation, without race adjustment. eGFR can be influenced by muscle mass, exercise, and diet. The reported eGFR is an estimation only and is only applicable if the renal function is stable. Blood STRUCTURE OF RIGHT UPPER LIMB / Unknown Venipuncture / Unknown 01/18/2021 8:05 PM CLINICAL RESOURCE COORDINATOR 01/18/2021 8:11 PM CLINICAL RESOURCE COORDINATOR Tres Calles MD LAB - BLOOD ORDER [facility] Acute Care Lab [address] [facility] Lab (1st floor, no room number) [place] [address], [facility] [phone] * Mammo diag w/implants, bilateral (05/04/2005 10:41 AM CLINICAL RESOURCE COORDINATOR) Anatomical Region Laterality Modality Breast Other 05/04/2005 10:4 1 AM CLINICAL RESOURCE COORDINATOR Impressions 05/04/2005 3:23 PM CLINICAL RESOURCE COORDINATOR DIAGNOSTIC MAMMOGRAM, BILATERAL - CHINYERE VIEWS SYMPTOMATIC/IMPLANTS [...] INITIALS: ??JANET. John Dougherty MD IMG MAMMOGRAPHY WILLIAMEagle HOLDEN from Last 3 Months or Most Recently Relevant to Health Maintenance Care Teams Safety Administrator Relationship Specialty Start Date End Date Clinic, [facility] [address] [place] [address] PCP - General 01/18/21
--- OUTSIDE RECORDS SUMMARY | 2023-10-05 10:47 | XMS_ITS | Referral Summary ---
Author Organization [employer] Address [address] [place] [address] Care Team Providers Care University Administrative Assistant Name Role Phone Clinic, [facility] Primary Care Provider Allergies Active Allergy [...] Comments Blood Pressure 118/72 01/18/2021 10:44 PM TENDER LABOR Pulse 87 01/18/2021 10:44 PM TENDER LABOR Temperature 36.6 ??C (97.9 ??F) 01/18/2021 7:54 PM CS T Respiratory Rate 16 01/18/2021 10:44 PM TENDER LABOR Oxygen Saturation 98% 01/18/2021 10:44 PM TENDER LABOR Inhaled Oxygen Concentration - - Weight 53.5 kg (118 lb) 01/18/2021 7:54 PM TENDER LABOR Height 165.1 cm (5' 5) 01/18/2021 7:54 PM TENDER LABOR Body Mass Index 19.64 01/18/2021 7:54 PM TENDER LABOR Plan of Treatment Not on file Procedures Procedure Name Priority Date/Time Associated Diagnosis Comments BASIC METABOLIC PANEL STAT 01/18/2021 8:05 PM TENDER LABOR MAMMOGRAM DIAG W/IMPLANTS, BILAT Routine 05/04/2005 10:41 AM TENDER LABOR from Last 3 Months or Most Recently Relevant to Health Maintenance Results * (ABNORMAL) Basic metabolic panel (01/18/2021 8:05 PM TENDER LABOR) Sodium 137 133 - 144 mmol/L 01/18/2021 8:38 PM [facility] Potassium 3.2(L) 3.4 - 5.3 mmol/L 01/18/2021 8:38 PM [facility] Chloride 106 94 - 109 mmol/L 01/18/2021 8:38 PM [facility] Carbon Dioxide (CO2) 23 20 - 32 mmol/L 01/18/2021 8:38 PM [facility] Anion Gap 8 3 - 14 mmol/L 01/18/2021 8:38 PM [facility] Urea Nitrogen 18 7 - 30 mg/dL 01/18/2021 8:38 PM [facility] Creatinine 1.04 0.52 - 1.04 mg/dL 01/18/2021 8:38 PM [facility] Calcium 9.1 8.5 - 10.1 mg/dL 01/18/2021 8:38 PM [facility] Glucose 156(H) 70 - 99 mg/dL 01/18/2021 8:38 PM [facility] GFR Estimate 61 >60 mL/min/1.7 3m2 01/18/2021 8:38 PM [facility] Comment:As of August 15, 2020, eGFR is calculated by the CKD-EPI creatinine equation, without race adjustment. eGFR can be influenced by muscle mass, exercise, and diet. The reported eGFR is an estimation only and is only applicable if the renal function is stable. Blood STRUCTURE OF RIGHT UPPER LIMB / Unknown Venipuncture / Unknown 01/18/2021 8:05 PM TENDER LABOR 01/18/2021 8:11 PM TENDER LABOR Tres Calles MD LAB - BLOOD ORDER [facility] Acute Care Lab [address] [facility] Lab (1st floor, no room number) [place] [address], [facility] [phone] * Mammo diag w/implants, bilateral (05/04/2005 10:41 AM TENDER LABOR) Anatomical Region Laterality Modality Breast Other 05/04/2005 10:4 1 AM TENDER LABOR Impressions 05/04/2005 3:23 PM TENDER LABOR DIAGNOSTIC MAMMOGRAM, BILATERAL - CHINYERE VIEWS SYMPTOMATIC/IMPLANTS [...] Recently Relevant to Health Maintenance Care Teams University Administrative Assistant Relationship Specialty Start Date End Date [facility], [facility] [place] [address] [place] [address] PCP - General 01/18/21
--- NOTE | 2023-10-05 11:15 | CRLHL7_ITS ---
For Patients: As a result of the Century Cures Act, medical imaging exams and procedure reports are released immediately into your electronic medical record. You may view this report before your referring provider. If you have questions, please contact your health care provider. PLEASE SEE RIGHT BREAST DIAGNOSTIC MAMMOGRAM PERFORMED SAME DAY. CRL:sp SP/Dictated by: Lew Izquierdo MD @ 10/05/2023 2:20:00 PM (Electronically Signed)
== END 2023-10-05 10:47 | disposition home or self-care (01) ==
LOC: MAMMO 10:46
PROVIDERS: PCP Family Medicine; Visit Provider Family Medicine
DX: N63.10 Unspecified lump in the right breast, unspecified quadrant (principal); R92.8 Other abnormal and inconclusive findings on diagnostic imaging of breast
CPT/HCPCS: 76642; 77065; G0279

== ENCOUNTER 2024-06-02 13:41 | Outpatient (CLI) | payer OTHER, SELFPAY ==
[2024-06-05 00:19] LABS: HPV Source Cervical; HPV, High Risk by TMA Not Detected
== END 2024-06-02 13:42 | disposition home or self-care (01) ==
PROVIDERS: PCP Family Medicine; Visit Provider Obstetrics & Gynecology
DX: E03.9 Hypothyroidism, unspecified (principal); Z12.4 Encounter for screening for malignant neoplasm of cervix; Z11.51 Encounter for screening for human papillomavirus (HPV)
CPT/HCPCS: 84443; 87624; 87625; 88141; 88142

== ENCOUNTER 2024-06-25 15:21 | Outpatient (CLI) | payer OTHER, SELFPAY ==
--- NOTE | 2024-06-25 15:30 | CRLHL7_ITS ---
For Patients: As a result of the Century Cures Act, medical imaging exams and procedure reports are released immediately into your electronic medical record. You may view this report before your referring provider. If you have questions, please contact your health care provider. DXA BONE MINERAL DENSITY STUDY Reason for exam: Menopausal and female climacteric states. Current height (in): 64. Weight (lb): 116. Menopause age: 59. Ethnicity: White. 1. Have you had a previous hip or vertebral fracture? No. 2. Have you had any fractures during your adult life which did not result from significant trauma (e.g., auto accident)? No. 3. Did either of your parents have a hip fracture? No. 4. Do you smoke? No. 5. Have you ever taken Glucocorticoids? No. 6. Do you have rheumatoid arthritis? No. 7. Do you have secondary osteoporosis? No. 8. Do you drink 3 or more alcoholic drinks per day? No. 9. Are you being treated for osteoporosis? No. 10. Have you ever taken any of the following medications: Actonel, Evista, Fosamax, Miacalcin, Reclast, Boniva, Forteo, HRT (i.e. estrogen/hormone therapy), Protelos, Prolia, Vitamin D, Calcium, other ??? please specify. ANSWER: Yes, Vitamin D and HRT (i.e. estrogen/hormone therapy. 11. Do you have any of the following medical conditions: Anorexia or bulimia, asthma or emphysema, end stage renal disease, hyperparathyroidism, any seizure disorders, cancer, inflammatory bowel diseases, hysterectomy, other ??? please specify. ANSWER: No. 12. What was your maximum height (inches)? 65. 13. Do you perform weight bearing exercise regularly? Yes. 14. Do you regularly consume dairy products? Yes. 15. Do you drink caffeinated beverages? Yes. 16. At what age did your period start? 13. 17. Are you premenopausal? No. 18. How many full term pregnancies have you had? 2. 19. Have you ever missed your period for more than 6 months in a row (not including or menopause)? Yes. TECHNIQUE: Bone mineral density study was performed using the [employer]. FINDINGS: The results of the study expressed as bone mineral density (BMD) are as follows: Lumbar spine L1 to L4: BMD: 1.006 g/cm2. T-score: -0.4. Z-score: 0.9. Neck Left: BMD: 0.627 g/cm2. T-score: -2.0. Z-score: -0.8. Right: BMD: 0.641 g/cm2. T-score: -1.9. Z-score: -0.7. Total Left: BMD: 0.780 g/cm2. T-score: -1.3 . Z-score: -0.5. Right: BMD: 0.835 g/cm2. T-score: -0.9 . Z-score: -0.0. IMPRESSION: Osteopenia. *Comparison exams done prior to 07/2019 were performed on different unit, [place]. FRAX 10-year Fracture Risk Major Osteoporotic Fracture: 7.7 percent Hip Fracture: 1.0 percent Reported Risk Factors: [place] () Neck BMD=0.627, BMI=19.9 Lew Izquierdo M.D. Diagnostic Radiologist [email or web address] SP/Dictated by: Lew Izquierdo MD @ 06/25/2024 3:51:00 PM (Electronically Signed)
== END 2024-06-25 15:22 | disposition home or self-care (01) ==
LOC: RAD 15:24
PROVIDERS: PCP Family Medicine; Visit Provider Obstetrics & Gynecology
DX: N95.1 Menopausal and female climacteric states (principal); M85.89 Other specified disorders of bone density and structure, multiple sites
CPT/HCPCS: 77080

== ENCOUNTER 2024-12-15 13:29 | Outpatient (CLI) | payer OTHER, SELFPAY ==
--- NOTE | 2024-12-15 13:40 | CRLHL7_ITS ---
For Patients: As a result of the Century Cures Act, medical imaging exams and procedure reports are released immediately into your electronic medical record. You may view this report before your referring provider. If you have questions, please contact your health care provider. BILATERAL DIGITAL SCREENING MAMMOGRAM WITH COMPUTER-AIDED DETECTION, IMPLANT VIEWS AND TOMOSYNTHESIS CLINICAL HISTORY: Routine screening exam. COMPARISON: 09/24/2023, 06/13/2022, 11/17/2020. TECHNIQUE: Digital mammogram in CC and MLO projections including computer-aided detection (CAD). Tomosynthesis was used in this interpretation. BREAST COMPOSITION: The breasts are heterogeneously dense, which may obscure small masses. FINDINGS: RIGHT Breast: Focal asymmetric density 2 cm from the nipple lower inner quadrant. LEFT Breast: No suspicious findings. IMPRESSION: RIGHT breast asymmetry/mass. RECOMMENDATIONS: Additional mammographic views of the RIGHT breast including 3D spot-compression CC/MLO. RIGHT breast ultrasound may also be required. The [facility] will contact the patient. A lay language report of this examination will be provided to the patient. BI-RADS Category 0: Incomplete: Need Additional Imaging Evaluation Dictated by Lew Izquierdo MD @ 12/16/2024 10:20:09 AM/CRL:[email or web address] ZEPEDA/Dictated by: Lew Izquierdo MD @ 12/16/2024 10:20:00 AM (Electronically Signed)
== END 2024-12-15 13:30 | disposition home or self-care (01) ==
LOC: MAMMO 13:30
PROVIDERS: PCP Family Medicine; Visit Provider Family Medicine
DX: Z12.31 Encounter for screening mammogram for malignant neoplasm of breast (principal); N63.10 Unspecified lump in the right breast, unspecified quadrant; R92.333 Mammographic heterogeneous density, bilateral breasts; Z98.82 Breast implant status
CPT/HCPCS: 77063; 77067

== ENCOUNTER 2024-12-24 09:34 | Outpatient (CLI) | payer OTHER, SELFPAY ==
--- NOTE | 2024-12-24 09:45 | CRLHL7_ITS ---
For Patients: As a result of the Cures Act, medical imaging exams and procedure reports are released immediately into your electronic medical record. You may view this report before your referring provider. If you have questions, please contact your health care provider. DIGITAL DIAGNOSTIC RIGHT MAMMOGRAM USING TOMOSYNTHESIS RIGHT BREAST ULTRASOUND CLINICAL HISTORY: RIGHT breast mass/asymmetry. COMPARISON: 12/15/2024, 10/05/2023. TECHNIQUE: Digital RIGHT mammogram in two projections. Tomosynthesis was used in this interpretation. Real-time ultrasound imaging of RIGHT breast with imaging documentation. Scanning was performed by both the technologist and the radiologist. BREAST COMPOSITION: There are scattered areas of fibroglandular density. FINDINGS: Additional mammogram images RIGHT breast submitted. Persistent nodular density is noted within the upper inner quadrant. No architectural distortion. Targeted RIGHT breast ultrasound performed. At 1 o`clock 4 cm from the nipple there is a subtle hypoechoic nodule which measures 4 x 3 x 5 mm. IMPRESSION: Indeterminate solid hypoechoic nodule RIGHT breast 1 o`clock 4 cm from the nipple measuring 5 mm. Possible normal lymph node. RECOMMENDATIONS: Ultrasound-guided core needle biopsy recommended. A lay language report of this examination will be provided to the patient. BI-RADS Category 4: Suspicious Dictated by Lew Izquierdo MD @ 12/24/2024 10:51:23 AM jj/Dictated by: Lew Izquierdo MD @ 12/24/2024 10:51:00 AM (Electronically Signed)
--- NOTE | 2024-12-24 10:15 | CRLHL7_ITS ---
For Patients: As a result of the Cures Act, medical imaging exams and procedure reports are released immediately into your electronic medical record. You may view this report before your referring provider. If you have questions, please contact your health care provider. SEE DIGITAL DIAGNOSTIC RIGHT MAMMOGRAM PERFORMED SAME DAY CRL:[email or web address] vincent/Dictated by: Lew Izquierdo MD @ 12/24/2024 12:20:00 PM (Electronically Signed)
== END 2024-12-24 09:35 | disposition home or self-care (01) ==
LOC: MAMMO 09:34
PROVIDERS: PCP Family Medicine; Visit Provider Family Medicine
DX: N63.10 Unspecified lump in the right breast, unspecified quadrant (principal); R92.8 Other abnormal and inconclusive findings on diagnostic imaging of breast
CPT/HCPCS: 76642; 77065; G0279

== ENCOUNTER 2024-12-26 10:03 | Outpatient (CLI) | payer OTHER, SELFPAY ==
--- NOTE | 2024-12-26 10:15 | CRLHL7_ITS ---
For Patients: As a result of the Century Cures Act, medical imaging exams and procedure reports are released immediately into your electronic medical record. You may view this report before your referring provider. If you have questions, please contact your health care provider. ULTRASOUND-GUIDED BREAST BIOPSY AND POST-BIOPSY DIGITAL MAMMOGRAM FOR BIOPSY MARKER PLACEMENT CLINICAL HISTORY: Indeterminate nodule. COMPARISON STUDIES: 12/26/2024. TECHNIQUE: Real-time ultrasound with image documentation was used for targeting the breast lesion. Core biopsy specimens were obtained using an automated gun with an 18-gauge biopsy needle. Post-biopsy CC and ML digital mammograms were obtained to document position of the biopsy marker. CONSENT and TIME OUT: The procedure, risks, and alternatives were explained to the patient and a consent was signed. [place] Protocol was followed including pre-procedure verification that relevant information/documentation was available, reviewed and properly matched to the patient; consent accurate and complete; and equipment and supplies available. Time Out was conducted just prior to starting procedure to verify the four required elements: patient identity, correct side/site marked (if applicable), procedure, relevant images/results properly labeled and displayed (if applicable). PROCEDURE: The patient was positioned supine on the ultrasound table. The breast was prepped with ChloraPrep. 6 cc of 1 percent lidocaine used for local anesthesia. Core samples were obtained. A sterile metal biopsy clip was placed percutaneously to mauri the lesion position within the breast. The specimens were placed in 10% formalin and sent to the pathology department. Pressure was held on the biopsy site until all bleeding subsided. The skin incision was closed with Steri-Strips. An ice pack was positioned over the biopsy site. Post-biopsy instructions were reviewed with the patient, and a written copy was given to her. LATERALITY: RIGHT. LESION: Hypoechoic solid nodule measures 4 x 3 x 5 millimeters at 1 o`clock 4 cm from the nipple. SUSPICION FOR MALIGNANCY: Intermediate. NUMBER OF SAMPLES: 5. BIOPSY CLIP SHAPE: Oval. PROXIMITY OF CLIP TO TARGET: Adjacent to the lesion. IMPRESSION: Ultrasound-guided breast biopsy. When the pathology report is available, an addendum to this report will be made. ACR not applicable Dictated by Lew Izquierdo MD @ 12/26/2024 10:58:00 AM MITCH/[email or web address] DW/Dictated by: Lew Izquierdo MD @ 12/26/2024 10:58:00 AM (Electronically Signed)
--- NOTE | 2024-12-26 11:00 | CRLHL7_ITS ---
For Patients: As a result of the Century Cures Act, medical imaging exams and procedure reports are released immediately into your electronic medical record. You may view this report before your referring provider. If you have questions, please contact your health care provider. Please see RIGHT breast ultrasound-guided breast biopsy of same day. DSM:[email or web address] 12/26/2024 DW/Dictated by: Lew Izquierdo MD @ 12/26/2024 10:55:00 AM (Electronically Signed)
== END 2024-12-26 10:04 | disposition home or self-care (01) ==
LOC: US 10:03
PROVIDERS: PCP Family Medicine; Visit Provider Family Medicine
DX: N63.10 Unspecified lump in the right breast, unspecified quadrant (principal); N62 Hypertrophy of breast; R92.8 Other abnormal and inconclusive findings on diagnostic imaging of breast
CPT/HCPCS: 19083; 77065; A4648; A4649

== ENCOUNTER 2025-01-07 08:50 | Outpatient (CLI) | payer OTHER, SELFPAY | END 2025-01-07 08:51 | disposition home or self-care (01) | PROVIDERS: PCP Family Medicine; Visit Provider Family Medicine | DX: E03.9 Hypothyroidism, unspecified (principal); K59.09 Other constipation; R10.9 Unspecified abdominal pain | CPT/HCPCS: 80053; 82784; 84443; 86231; 86258; 86364 ==